=== PATIENT | female | born 1990 | race African-American/Black ===

== ENCOUNTER 2019-11-28 15:17 | Emergency (ER) | payer SELFPAY ==
[~2019-11-28] VITALS: Ht 167.6 cm; Wt 100.0 kg
[2019-11-28 15:30] VITALS: BP 168/78; TEMP 98.5
[2019-11-28] MEDS ORDERED: NORCO 325 MG-51 TAB PO (16:06)
[2019-11-28] MEDS ORDERED: AMOXICILLIN 50500 MG PO (16:06)
[2019-11-28 16:22] VITALS: PULSE 71
== END 2019-11-28 16:20 | disposition home or self-care (01) ==
LOC: COL.ER 15:17
DX: K08.89 Other specified disorders of teeth and supporting structures (principal); Z88.2 Allergy status to sulfonamides

== ENCOUNTER 2020-12-13 20:12 | Emergency (ER) | payer BC ==
[~2020-12-13] VITALS: Ht 165.1 cm; Wt 90.9 kg
[~2020-12-13 20:12] MED LIST: AMOXICILLIN 50500 MG PO; NORCO 325 MG-51 TAB PO
[2020-12-13] MEDS ORDERED: CLEOCIN HCL300 MG PO (20:50)
[2020-12-13 21:02] VITALS: BP 134/85; PULSE 95; TEMP 98.7
[2021-04-11] MEDS ORDERED: CEPHALEXIN500 M1 PO (09:33)
== END 2020-12-13 21:11 | disposition home or self-care (01) ==
LOC: COL.ER 20:12
DX: L05.01 Pilonidal cyst with abscess (principal); F17.210 Nicotine dependence, cigarettes, uncomplicated; Z88.2 Allergy status to sulfonamides
CPT/HCPCS: J1885; J2270